=== PATIENT | male | born 1945 | race Caucasian/White ===

== ENCOUNTER 2022-12-01 15:56 | Emergency (ER) | payer OTHER ==
[~2022-12-01] VITALS: Ht 182.9 cm; Wt 82.0 kg
[2022-12-01 16:45] VITALS: BP 170/82
[2022-12-01 17:39] LABS: Urine Bacteria NONE SEEN /hpf (None Seen); Urine Blood Negative /uL (Negative); Urine Specific Gravity 1.011 (1.001-1.035); Urine WBC 55 /hpf (0 - 3)
[2022-12-01] MEDS ORDERED: BACDST PO (17:57)
[2022-12-01] MEDS ORDERED: cefTRIAXone SOD 1,000 MG VL IM ONE (18:00)
== END 2022-12-01 19:17 | disposition home or self-care (01) ==
LOC: ER 15:56
DX: N39.0 Urinary tract infection, site not specified (principal); I16.0 Hypertensive urgency
CPT/HCPCS: 51702; 81001; 96372; 99284; J0696

== ENCOUNTER → 2023-03-23 | Day surgery (SDC) | payer OTHER ==
[~2023-03-23] VITALS: Ht 182.9 cm; Wt 87.1 kg
[~2023-03-23] MED LIST: ASPI1TAB20 PO; ATEN50TA PO; CIPROFLOXACIN 400MG/200ML 200 ML IV ONE; DOCU100T15 PO; FINA5TAB4 PO; LOSA100T58 PO; MELO-335 PO; MULT-1018 OR; SIMV10TA20 PO; TAMS0.4C36 PO
[2023-03-23 08:50] VITALS: BP 187/92
== END | disposition home or self-care (01) ==
LOC: SUR 07:23
PROVIDERS: ATTEND Urology
DX: N40.1 Benign prostatic hyperplasia with lower urinary tract symptoms (principal); Z53.8 Procedure and treatment not carried out for other reasons; D53.8 Other specified nutritional anemias